=== PATIENT | female | born 1960 | race Caucasian/White ===

== ENCOUNTER 2017-08-07 14:02 | Emergency (ER) | payer BC ==
--- NOTE | 2017-08-07 14:45 | EDM.PDOC ---
ED HPI GENERAL MEDICAL PROBLEM - General Chief Complaint: General Stated Complaint: BITEN BY STRAY CAT Time Seen by Provider: 08/07/17 14:35 Source of Information: Reports: Patient History Limitations: Reports: No Limitations - History of Present Illness INITIAL COMMENTS - FREE TEXT/NARRATIVE: 57 yo white female bit by stray cat one hour ago. Right 2nd finger - Related Data Allergies Allergy/AdvReac Type Severity Reaction Status Date / Time acetaminophen Allergy Disorientat Verified 08/07/17 14:28 [From Darvocet-N] ion ampicillin Allergy Nausea Verified 08/07/17 14:28 aspirin Allergy Bleeding Verified 08/07/17 14:28 Beta-Blockers Allergy Hypotension Verified 08/07/17 14:28 (Beta-Adrenergic Bloc erythromycin base Allergy Nausea Verified 08/07/17 14:28 nylon Allergy Rash Verified 08/07/17 14:28 propoxyphene Allergy Disorientat Verified 08/07/17 14:28 [From Darvocet-N] ion rosuvastatin [From Crestor] Allergy Leg Cramps Verified 08/07/17 14:28 Sulfa (Sulfonamide Allergy Blisters Verified 08/07/17 14:28 Antibiotics) bee stings Allergy Edema Uncoded 08/07/17 14:28 Home Meds: Home Meds Ezetimibe [Zetia] 10 mg PO DAILY 08/07/17 [History] Hydrochlorothiazide 25 mg PO DAILY 08/07/17 [History] Multivitamin [Daily Multiple Vitamin] 1 tab PO DAILY 08/07/17 [History] Potassium Chloride 20 meq PO BID 08/07/17 [History] Ubidecarenone [Co Q-10] 10 mg PO DAILY 08/07/17 [History] Verapamil [Calan SR] 180 mg PO DAILY 08/07/17 [History] Social & Family History - Tobacco Use Second Hand Smoke Exposure: No - Recreational Drug Use Recreational Drug Use: No Review of Systems - Review of Systems Review Of Systems: See Below Constitutional: Reports: No Symptoms Eyes: Reports: No Symptoms Ears: Reports: No Symptoms Nose: Reports: No Symptoms Mouth/Throat: Reports: No Symptoms Respiratory: Reports: No Symptoms Cardiovascular: Reports: No Symptoms GI/Abdominal: Reports: No Symptoms Genitourinary: Reports: No Symptoms Musculoskeletal: Reports: Other (right 2nd finger) Skin: Reports: Wound (4 cat teeth bites) Neurological: Reports: No Symptoms Psychiatric: Reports: No Symptoms ED EXAM, GENERAL - Physical Exam Exam: See Below Exam Limited By: No Limitations General Appearance: Alert, WD/WN, No Apparent Distress Respiratory/Chest: No Respiratory Distress, Lungs Clear Cardiovascular: Normal Peripheral Pulses, Regular Rate, Rhythm Extremities: Other (right 2nd finger w/ 4 cat teeth bites) Neurological: Alert, Oriented, CN II-XII Intact Psychiatric: Normal Affect Skin Exam: Wound/Incision (cat teeth bites) Lymphatic: No Adenopathy Course - Vital Signs Last Recorded V/S: Last Vital Signs Temp 36.4 C 08/07/17 14:50 Pulse 86 08/07/17 14:50 Resp 20 08/07/17 14:50 BP 146/79 H 08/07/17 14:50 Pulse Ox 97 08/07/17 14:50 - Orders/Labs/Meds Orders: Active Orders 24 hr Category Date Time Status Vaccines to be Administered [RC] PER UNIT ROUTINE Care 08/07/17 14:55 Active Vaccines to be Administered [RC] PER UNIT ROUTINE Care 08/07/17 15:31 Ordered Vaccines to be Administered [RC] PER UNIT ROUTINE Care 08/07/17 15:32 Ordered Vaccines to be Administered [RC] PER UNIT ROUTINE Care 08/07/17 15:33 Ordered Rabies Vaccine, Human Diploid [Imovax Rabies] Med 08/10/17 15:27 Once 2.5 unit IM .ONCE ONE Rabies Vaccine, Human Diploid [Imovax Rabies] Med 08/14/17 15:31 Once 2.5 unit IM .ONCE ONE Rabies Vaccine, Human Diploid [Imovax Rabies] Med 08/21/17 15:32 Once 2.5 unit IM .ONCE ONE Medication Orders Rabies Vaccine Human Diploid Cell (Imovax Rabies) 2.5 unit IM .ONCE ONE Stop: 08/10/17 15:28 Rabies Vaccine Human Diploid Cell (Imovax Rabies) 2.5 unit IM .ONCE ONE Stop: 08/14/17 15:32 Rabies Vaccine Human Diploid Cell (Imovax Rabies) 2.5 unit IM .ONCE ONE Stop: 08/21/17 15:33 Meds: Medications Generic Name Dose Route Start Last Admin Trade Name Freq PRN Reason Stop Dose Admin Rabies Vaccine Human Diploid Cell 2.5 unit 08/10/17 15:27 Imovax Rabies IM 08/10/17 15:28 .ONCE ONE Rabies Vaccine Human Diploid Cell 2.5 unit 08/14/17 15:31 Imovax Rabies IM 08/14/17 15:32 .ONCE ONE Rabies Vaccine Human Diploid Cell 2.5 unit 08/21/17 15:32 Imovax Rabies IM 08/21/17 15:33 .ONCE ONE Discontinued Medications Generic Name Dose Route Start Last Admin Trade Name Freq PRN Reason Stop Dose Admin Diphtheria/Tetanus/Acell Pertussis 0.5 ml 08/07/17 14:54 08/07/17 15:01 Adacel IM 08/07/17 14:55 0.5 ml .ONCE ONE Administration Rabies Immune Globulin 12.7 unit 08/07/17 14:54 08/07/17 15:06 Hyperrab S/D IM 08/07/17 14:55 12.7 unit ONETIME ONE Administration Rabies Vaccine Human Diploid Cell 2.5 unit 08/07/17 14:54 08/07/17 15:06 Imovax Rabies IM 08/07/17 14:55 2.5 unit .ONCE ONE Administration Departure - Departure Time of Disposition: 15:22 Disposition: Home, Self-Care 01 Condition: Good Clinical Impression: Cat bite of finger Qualifiers: Encounter type: initial encounter Qualified Code(s): S61.259A - Open bite of unspecified finger without damage to nail, initial encounter - Discharge Information Instructions: Animal Bite, [id number] Forms: ED Department Discharge Additional Instructions: Keep wound clean and dry Take Medication as directed only AUGMENTIN 875mg BID # 28 BACTROBAN OINT. use BID # 22g F/U as directed for Anti-Rabies injections on (Day # 3( , # 7( ) and # 14( ) F/U w/ PCP for wound check - My Orders Last 24 Hours: My Active Orders 08/07/17 14:55 Vaccines to be Administered [RC] PER UNIT ROUTINE 08/07/17 15:31 Vaccines to be Administered [RC] PER UNIT ROUTINE 08/07/17 15:32 Vaccines to be Administered [RC] PER UNIT ROUTINE 08/07/17 15:33 Vaccines to be Administered [RC] PER UNIT ROUTINE 08/10/17 15:27 Rabies Vaccine, Human Diploid [Imovax Rabies] 2.5 unit IM .ONCE ONE 08/14/17 15:31 Rabies Vaccine, Human Diploid [Imovax Rabies] 2.5 unit IM .ONCE ONE 08/21/17 15:32 Rabies Vaccine, Human Diploid [Imovax Rabies] 2.5 unit IM .ONCE ONE - Assessment/Plan Last 24 Hours: My Active Orders 08/07/17 14:55 Vaccines to be Administered [RC] PER UNIT ROUTINE 08/07/17 15:31 Vaccines to be Administered [RC] PER UNIT ROUTINE 08/07/17 15:32 Vaccines to be Administered [RC] PER UNIT ROUTINE 08/07/17 15:33 Vaccines to be Administered [RC] PER UNIT ROUTINE 08/10/17 15:27 Rabies Vaccine, Human Diploid [Imovax Rabies] 2.5 unit IM .ONCE ONE 08/14/17 15:31 Rabies Vaccine, Human Diploid [Imovax Rabies] 2.5 unit IM .ONCE ONE 08/21/17 15:32 Rabies Vaccine, Human Diploid [Imovax Rabies] 2.5 unit IM .ONCE ONE
[2017-08-07 14:53] VITALS: BP 146/79
[2017-08-07] MEDS ORDERED: Rabies Immune Globulin PF 150 Units/ML 10 ML SDV IM ONE (14:54)
[2017-08-07] MEDS ORDERED: Diphtheria,Pertussis(Acell),Tetanus Vaccine 0.5 ML SDV IM ONE (14:54)
[2017-08-07] MEDS ORDERED: Rabies Vaccine, Human Diploid Cell PF 2.5 Unit SDV IM ONE (14:54)
[2017-08-10] MEDS ORDERED: Rabies Vaccine, Human Diploid Cell PF 2.5 Unit SDV IM ONE (15:27)
[2017-08-14] MEDS ORDERED: Rabies Vaccine, Human Diploid Cell PF 2.5 Unit SDV IM ONE (15:31)
[2017-08-21] MEDS ORDERED: Rabies Vaccine, Human Diploid Cell PF 2.5 Unit SDV IM ONE (15:32)
== END 2017-08-07 15:43 | disposition home or self-care (01) ==
LOC: DL.ED 14:02
DX: S61.250A Open bite of right index finger without damage to nail, initial encounter (principal); Z88.8 Allergy status to other drugs, medicaments and biological substances; Z88.2 Allergy status to sulfonamides; Z88.1 Allergy status to other antibiotic agents; Z91.030 Bee allergy status; Z79.899 Other long term (current) drug therapy; W55.01XA Bitten by cat, initial encounter; Z23 Encounter for immunization; Z88.6 Allergy status to analgesic agent
CPT/HCPCS: 73140-F6; 90375; 90471; 90472; 90675; 90715; 99283